=== PATIENT | male | born 1955 | race Caucasian/White ===

== ENCOUNTER 2021-04-28 07:26 | Outpatient (REF) | payer OTHER, SELFPAY | END 2021-04-28 07:27 | disposition home or self-care (01) | LOC: HO.BBR 07:26 | PROVIDERS: Visit Provider Internal Medicine Hematology | DX: Z13.89 Encounter for screening for other disorder (principal) ==

== ENCOUNTER 2021-07-28 09:38 | Outpatient (REF) | payer OTHER, SELFPAY | END 2021-07-28 09:39 | disposition home or self-care (01) | LOC: HO.BBR 09:38 | PROVIDERS: Visit Provider Internal Medicine Hematology | DX: Z13.89 Encounter for screening for other disorder (principal) ==

== ENCOUNTER 2021-10-27 10:17 | Outpatient (REF) | payer OTHER, SELFPAY | END 2021-10-27 10:18 | disposition home or self-care (01) | LOC: HO.BBR 10:17 | PROVIDERS: Visit Provider Internal Medicine Hematology | DX: Z13.89 Encounter for screening for other disorder (principal) ==

== ENCOUNTER 2022-01-26 10:11 | Outpatient (REF) | payer OTHER, SELFPAY | END 2022-01-26 10:12 | disposition home or self-care (01) | LOC: HO.BBR 10:11 | PROVIDERS: Visit Provider Internal Medicine Hematology | DX: Z13.89 Encounter for screening for other disorder (principal) ==

== ENCOUNTER 2022-04-27 10:54 | Outpatient (REF) | payer OTHER, SELFPAY | END 2022-04-27 10:55 | disposition home or self-care (01) | LOC: HO.BBR 10:54 | PROVIDERS: Visit Provider Internal Medicine Hematology | DX: Z13.89 Encounter for screening for other disorder (principal) ==

== ENCOUNTER 2022-07-27 08:41 | Outpatient (REF) | payer MEDICARE, SELFPAY | END 2022-07-27 08:42 | disposition home or self-care (01) | LOC: HO.BBR 08:41 | PROVIDERS: Visit Provider Internal Medicine Hematology | DX: Z13.89 Encounter for screening for other disorder (principal) ==

== ENCOUNTER 2022-10-26 10:01 | Outpatient (REF) | payer MEDICARE, SELFPAY | END 2022-10-26 10:02 | disposition home or self-care (01) | LOC: HO.BBR 10:01 | PROVIDERS: Visit Provider Internal Medicine Hematology | DX: Z13.89 Encounter for screening for other disorder (principal) ==

== ENCOUNTER 2023-02-01 10:10 | Outpatient (REF) | payer MEDICARE, SELFPAY | END 2023-02-01 10:11 | disposition home or self-care (01) | LOC: HO.BBR 10:10 | PROVIDERS: Visit Provider Internal Medicine Hematology | DX: Z13.89 Encounter for screening for other disorder (principal) ==

== ENCOUNTER 2023-05-03 08:42 | Outpatient (REF) | payer MEDICARE, SELFPAY | END 2023-05-03 08:43 | disposition home or self-care (01) | LOC: HO.BBR 08:42 | PROVIDERS: Visit Provider Internal Medicine Hematology | DX: Z13.89 Encounter for screening for other disorder (principal) ==

== ENCOUNTER 2023-08-02 09:45 | Outpatient (REF) | payer MEDICARE, SELFPAY | END 2023-08-02 09:46 | disposition home or self-care (01) | LOC: HO.BBR 09:45 | PROVIDERS: Visit Provider Internal Medicine Hematology | DX: Z13.89 Encounter for screening for other disorder (principal) ==

== ENCOUNTER 2023-11-08 09:45 | Outpatient (REF) | payer MEDICARE, SELFPAY | END 2023-11-08 09:46 | disposition home or self-care (01) | LOC: HO.BBR 09:45 | PROVIDERS: Visit Provider Internal Medicine Hematology | DX: Z13.89 Encounter for screening for other disorder (principal) ==

== ENCOUNTER 2024-01-31 10:43 | Outpatient (REF) | payer MEDICARE, SELFPAY | END 2024-01-31 10:44 | disposition home or self-care (01) | LOC: HO.BBR 10:43 | PROVIDERS: Visit Provider Internal Medicine Hematology & Oncology | DX: Z13.89 Encounter for screening for other disorder (principal) ==

== ENCOUNTER 2024-05-01 10:48 | Outpatient (REF) | payer MEDICARE, SELFPAY | END 2024-05-01 10:49 | disposition home or self-care (01) | LOC: HO.BBR 10:48 | PROVIDERS: Visit Provider Internal Medicine Hematology & Oncology | DX: Z13.89 Encounter for screening for other disorder (principal) ==

== ENCOUNTER 2024-07-31 11:01 | Outpatient (REF) | payer MEDICARE, SELFPAY ==
--- OUTSIDE RECORDS SUMMARY | 2024-07-31 12:44 | XMS_ITS | Clinical Summary ---
Author Organization [facility] Address [address] [id number] Care Team Providers Care Usps Letter Carrier Name Role Phone Unavailable Primary Care Provider Unavailabl e Social History Tobacco Use Types Packs/Day Years Used Date Smoking Tobacco: Never Assessed Sex and Gender Information Value Date Recorded Sex Assigned at Not on file Gender Identity Not on file Sexual Orientation Not on file Job Start Date Occupation Industry Not on file Not on file Not on file Plan of Treatment Health Maintenance Due Date Last Done Comments Hepatitis C Screening 1955 COVID-19 Vaccine (#1) 1956 Depression Screening 1968 Preventative Health Evaluation 1974 DTap / Tdap / Td (1 - Tdap) 1975 Colon Cancer Screening (Colonoscopy) 2001 Shingrix-Zoster Vaccine (1 of 2) 2006 Fall Risk Assessment 2021 Pneumococcal Vaccine (1 of 1 - PCV) 2021 Influenza Vaccine (#1) 2024 RSV Adult > 60+ Yrs or Pregn ant (1 - 1-dose 75+ series) 2031 Hepatitis B Vaccines Aged Out No long er eligible based on patient's age to complete this topic RSV Ped < 20 months Aged Out No longe r eligible based on patient's age to complete this topic
--- OUTSIDE RECORDS SUMMARY | 2024-07-31 12:44 | XMS_ITS | Clinical Summary ---
Author Organization [facility] Address [address] [place] [address] Care Team Providers Care Web Site Administrator Name Role Phone Unavailable Primary Care Provider Unavailabl e Social History Tobacco Use Types Packs/Day Years Used Date Smoking Tobacco: Never Assessed Sex and Gender Information Value Date Recorded Sex Assigned at Not on file Legal Sex Male 12:50 AM EDT Gender Identity Not on file Sexual Orientation Not on file Plan of Treatment Health Maintenance Due Date Last Done Comments Hepatitis C Screening 1955 DTaP/Tdap/Td (1 - Tdap) 1974 Pneumococcal 50+ years (1 of 1 - PCV) 2006 Zoster (Shingrix) (1 of 2) 2006 COVID-19 Vaccine ( - 2023-2 5 season) 2024 Influenza (#1) 2024 RSV (1 - 1-dose 75+ series) 2031 Abdominal Aorta Imaging Discontinued HPV Vaccine Aged Out No longer eligi ble based on patient's age to complete this topic Hep A Aged Out No longer eligi ble based on patient's age to complete this topic Hep B Aged Out No longer eligi ble based on patient's age to complete this topic Hib Aged Out No longer eligi ble based on patient's age to complete this topic Meningococcal ACWY Aged Out No longer eligible based on patient's age to complete this topic Zoster (Zostavax) Discontinued
== END 2024-07-31 11:02 | disposition home or self-care (01) ==
LOC: HO.BBR 11:01
PROVIDERS: Visit Provider Internal Medicine Hematology & Oncology
DX: Z13.89 Encounter for screening for other disorder (principal)

== ENCOUNTER 2024-10-30 11:02 | Outpatient (REF) | payer MEDICARE, SELFPAY ==
--- OUTSIDE RECORDS SUMMARY | 2024-10-30 11:55 | XMS_ITS | Clinical Summary ---
Author Organization [facility] Address [address] [phone] Care Team Providers Care Maori Liaison Adviser Name Role Phone Unavailable Primary Care Provider [...] of 1 - PCV) 2021 Influenza Vaccine (Season Ended) 2025 RSV Adult > 60+ Yrs or Pregn ant (1 - 1-dose 75+ series) 2031 Hepatitis B Vaccines Aged Out No long er eligible based on patient's age to complete this topic RSV Ped < 20 months Aged Out No longe r eligible based on patient's age to complete this topic
== END 2024-10-30 11:03 | disposition home or self-care (01) ==
LOC: HO.BBR 11:02
PROVIDERS: Visit Provider Internal Medicine Hematology & Oncology
DX: Z13.89 Encounter for screening for other disorder (principal)

== ENCOUNTER 2025-02-05 11:21 | Outpatient (REF) | payer MEDICARE, SELFPAY | END 2025-02-05 11:22 | disposition home or self-care (01) | LOC: HO.BBR 11:21 | PROVIDERS: Visit Provider Internal Medicine Hematology | DX: Z13.89 Encounter for screening for other disorder (principal) ==